=== PATIENT | male | born 1955 | race Caucasian/White ===

== ENCOUNTER → 2018-05-28 | Outpatient (CLI) | payer OTHER ==
--- NOTE | 2018-05-28 11:22 | US ---
EXAMINATION TYPE: US duplex aorta DATE OF EXAM: 05/28/2018 COMPARISON: NONE CLINICAL HISTORY: 62-year-old male I70.0 Atherosclerosis of aorta,. HTN TECHNIQUE: Multiple sonographic images of the abdominal aorta are obtained. FINDINGS: EXAM MEASUREMENTS: Abdominal Aorta: Proximal: 2.6 x 2.4 cm. Mid: 2.1 x 1.7 cm. Distal: 1.7 x 1.5 cm. Bifurcation: Right HEATHER 1.3 x 1.2 cm; Left HEATHER = 1.3 x 1.1 cm. Mild intimal wall thickening noted distally. IMPRESSION: Mildly ectatic upper abdominal aorta 2.6 cm. Otherwise, no sonographic evidence for AAA.
== END ==
LOC: RADUSWWP 07:01
PROVIDERS: ATTEND Family Medicine
DX: I77.811 Abdominal aortic ectasia (principal)
CPT/HCPCS: 93979